=== PATIENT | female | born 1980 | race Two or more races ===

== ENCOUNTER 2018-11-19 20:48 | Observation (INO) | payer MEDICAID, OTHER ==
[2018-11-19] MEDS ORDERED: HYDROmorphONE/DILAUDID 1 MG/ML INJ ONE ×2 (21:03→21:57)
[2018-11-19] MEDS ORDERED: ONDANSETRON 4 MG/2 ML VIAL ONE ×2 (21:04→23:26)
[2018-11-19] MEDS ORDERED: NS 1,000 ML IV ONE (21:07)
[2018-11-19] MEDS ORDERED: ONDANSETRON 4 MG/2 ML VIAL IVP ONE (21:08)
[2018-11-19] MEDS ORDERED: HYDROmorphONE/DILAUDID 2 MG/ML INJ IVP ONE ×2 (21:08→22:01)
--- NOTE | 2018-11-19 21:10 | EDPHY ---
H & P Stated Complaint: lower abd pain Time Seen by Provider: 11/19/18 21:04 HPI/ROS: CHIEF COMPLAINT: Abdominal pain HISTORY OF PRESENT ILLNESS: Patient is a 38-year-old female who comes to the emergency department complaining of lower abdominal pain. The states that it began about 2 3 hr ago. She is nauseous but has not been vomiting. No diarrhea. No fever. She felt well prior to this. She denies history of abdominal surgery although she states that she did have a procedure so that she cannot have babies. No dysuria. No vaginal bleeding or discharge. Last menstrual period was 3 weeks ago. Severity: Severe Modifying factors: Worsened by palpation REVIEW OF SYSTEMS: Constitutional: denies: chills, fever, recent illness, recent injury EENTM: denies: blurred vision, double vision, nose congestion Respiratory: denies: cough, shortness of breath Cardiac: denies: chest pain, irregular heart rate, lightheadedness, palpitations Gastrointestinal/Abdominal: See HPI Genitourinary: denies: dysuria, frequency, hematuria, pain Musculoskeletal: denies: joint pain, muscle pain Skin: denies: lesions, rash, jaundice, bruising Neurological: denies: headache, numbness, paresthesia, tingling, dizziness, weakness Hematologic/Lymphatic: denies: blood clots, easy bleeding, easy bruising Immunologic/allergic: denies: HIV/AIDS, transplant 10 systems reviewed and negative except as noted EXAM: GENERAL: Moderate distress. HEAD: Atraumatic, normocephalic. EYES: Pupils equal round and reactive to light, extraocular movements intact, sclera anicteric, conjunctiva are normal. ENT: TMs normal, nares patent, oropharynx clear without exudates. Moist mucous membranes. NECK: Normal range of motion, supple without lymphadenopathy or JVD. LUNGS: Breath sounds clear to auscultation bilaterally and equal. No wheezes rales or rhonchi. HEART: Regular rate and rhythm without murmurs, rubs or gallops. ABDOMEN: Suprapubic and right lower quadrant tenderness, normoactive bowel sounds. No guarding, no rebound. No masses appreciated. BACK: No CVA tenderness, no spinal tenderness, step-offs or deformities EXTREMITIES: Normal range of motion, no pitting or edema. No clubbing or cyanosis. NEUROLOGICAL: Cranial nerves II through XII grossly intact. Normal speech, normal gait. 5/5 strength, normal movement in all extremities, normal sensation , normal reflexes PSYCH: Normal mood, normal affect. SKIN: Warm, dry, normal turgor, no visible rashes or lesions. Source: Patient Exam Limitations: Language barrier - Personal History LMP (Females 10-55): 8-14 Days Ago Current Tetanus/Diphtheria Vaccine: Yes Current Tetanus Diphtheria and Acellular Pertussis (TDAP): Yes - Medical/Surgical History Hx Asthma: No Hx Chronic Respiratory Disease: No Hx Diabetes: No Hx Cardiac Disease: No Hx Renal Disease: No Hx Cirrhosis: No Hx Alcoholism: No Hx HIV/AIDS: No Hx Splenectomy or Spleen Trauma: No Other PMH: denies - Family History Significant Family History: No pertinent family hx - Social History Smoking Status: Never smoked Alcohol Use: None Constitutional: Initial Vital Signs Temperature (C) 37.2 C 11/19/18 20:50 Heart Rate 78 11/19/18 20:50 Respiratory Rate 16 11/19/18 20:50 Blood Pressure 119/78 11/19/18 20:50 O2 Sat (%) 100 11/19/18 20:50 O2 Delivery Mode Room Air Allergies/Adverse Reactions: No Known Allergies Allergy (Unverified 02/20/12 18:50) Home Medications: Medication Instructions Recorded Multivitamins [Multivitamin (*)] 1 each PO DAILY 11/19/18 Medical Decision Making - Diagnostics Imaging Results: Imaging Impressions Abdomen CT 11/19/18 21:07 Impression: 1. Acute appendicitis with thickening up to 16 mm and an appendicolith. 2. No abscess or bowel obstruction. Findings and recommendations discussed with Emergency Department physician, ALVIN ZEPEDA at 21:52 hour, 11/19/2018. Final report concurs with initial preliminary interpretation. Imaging: Discussed imaging studies w/ machine helper Radiologist ED Course/Re-evaluation: 9:55 p.m. the patient has appendicitis on CT scan. This is consistent with her exam and lab work. I have paged surgery and will start antibiotics. Discussed this with the family through the furniture inspector and they understand and agree with plan. 10:15 p.m. discussed the case with Dr. Plummer who will come to evaluate. Differential Diagnosis: Partial list of the Differential diagnosis considered include but were not limited to; appendicitis, ovarian cyst, urinary tract infection and although unlikely based on the history and physical exam, I also considered kidney stone , ischemia, obstruction. I discussed these differential diagnoses and the plan with the patient as well as the usual and expected course. The patient understands that the diagnosis is provisional and that in medicine we are not always correct and that further workup is often warranted. Usual and customary warnings were given. All of the patient's questions were answered. The patient was instructed to return to the emergency department should the symptoms at all worsen or return, otherwise to followup with the physician as we discussed. - Data Points Laboratory Results: Laboratory Results 11/19/18 21:12 11/19/18 21:12 11/19/18 11/19/18 11/19/18 21:18 21:12 21:12 WBC RBC Hgb POC Hgb 12.2 gm/dL L gm/dL (12.6-16.3) Hct POC Hct 36 % L % (38-47) MCV MCH MCHC RDW Plt Count MPV Neut % (Auto) Lymph % (Auto) George % (Auto) Eos % (Auto) Baso % (Auto) Nucleat RBC Rel Count Absolute Neuts (auto) Absolute Lymphs (auto) Absolute Monos (auto) Absolute Eos (auto) Absolute Basos (auto) Absolute Nucleated RBC Immature Gran % Immature Gran # POC Sodium 140 mEq/L mEq/L (135-145) Sodium 135 mEq/L mEq/L (135-145) POC Potassium 3.8 mEq/L mEq/L (3.3-5.0) Potassium 4.2 mEq/L mEq/L (3.5-5.2) POC Chloride 103 mEq/L mEq/L (97-110) Chloride 101 mEq/L mEq/L (97-110) Carbon Dioxide 23 mEq/l mEq/l (22-31) POC Total CO2 23 mEq/L mEq/L (22-31) Anion Gap 11 mEq/L mEq/L (6-14) POC BUN 11 mg/dL mg/dL (7-23) BUN 13 mg/dL mg/dL (7-23) Creatinine 0.7 mg/dL mg/dL (0.6-1.0) POC Creatinine 0.7 mg/dL mg/dL (0.6-1.0) Estimated GFR > 60 Glucose 109 mg/dL H mg/dL (70-100) POC Glucose 114 mg/dL H mg/dL (70-100) Calcium 9.8 mg/dL mg/dL (8.5-10.4) Total Bilirubin 0.2 mg/dL mg/dL (0.1-1.4) Conjugated Bilirubin 0.2 mg/dL mg/dL (0.0-0.5) Unconjugated Bilirubin 0.0 mg/dL mg/dL (0.0-1.1) AST 24 IU/L IU/L (14-46) ALT 22 IU/L IU/L (9-52) Alkaline Phosphatase 121 IU/L IU/L (38-126) Total Protein 7.3 g/dL g/dL (6.3-8.2) Albumin 4.4 g/dL g/dL (3.5-5.0) Lipase 161 IU/L IU/L (23-300) Beta HCG, Qual NEGATIVE 11/19/18 21:12 WBC 15.14 10^3/uL H 10^3/uL (3.80-9.50) RBC 4.59 10^6/uL 10^6/uL (4.18-5.33) Hgb 10.7 g/dL L g/dL (12.6-16.3) POC Hgb Hct 34.8 % L % (38.0-47.0) POC Hct MCV 75.8 fL L fL (81.5-99.8) MCH 23.3 pg L pg (27.9-34.1) MCHC 30.7 g/dL L g/dL (32.4-36.7) RDW 17.8 % H % (11.5-15.2) Plt Count 322 10^3/uL 10^3/uL (150-400) MPV 9.6 fL fL (8.7-11.7) Neut % (Auto) 77.4 % H % (39.3-74.2) Lymph % (Auto) 14.7 % L % (15.0-45.0) George % (Auto) 5.3 % % (4.5-13.0) Eos % (Auto) 1.9 % % (0.6-7.6) Baso % (Auto) 0.3 % % (0.3-1.7) Nucleat RBC Rel Count 0.0 % % (0.0-0.2) Absolute Neuts (auto) 11.72 10^3/uL H 10^3/uL (1.70-6.50) Absolute Lymphs (auto) 2.22 10^3/uL 10^3/uL (1.00-3.00) Absolute Monos (auto) 0.80 10^3/uL 10^3/uL (0.30-0.80) Absolute Eos (auto) 0.29 10^3/uL 10^3/uL (0.03-0.40) Absolute Basos (auto) 0.05 10^3/uL 10^3/uL (0.02-0.10) Absolute Nucleated RBC 0.00 10^3/uL 10^3/uL (0-0.01) Immature Gran % 0.4 % % (0.0-1.1) Immature Gran # 0.06 10^3/uL 10^3/uL (0.00-0.10) POC Sodium Sodium POC Potassium Potassium POC Chloride Chloride Carbon Dioxide POC Total CO2 Anion Gap POC BUN BUN Creatinine POC Creatinine Estimated GFR Glucose POC Glucose Calcium Total Bilirubin Conjugated Bilirubin Unconjugated Bilirubin AST ALT Alkaline Phosphatase Total Protein Albumin Lipase Beta HCG, Qual Medications Given: Metronidazole/Sodium Chloride (Flagyl 500 Mg (Premix)) 100 mls @ 100 mls/hr IV EDNOW ONE PRN Reason: Protocol Stop: 11/19/18 22:53 Last Admin: 11/19/18 22:20 Dose: 100 mls Discontinued Medications Hydromorphone HCl (Dilaudid) 0.5 mg IVP EDNOW ONE Stop: 11/19/18 21:09 Last Admin: 11/19/18 21:11 Dose: 0.5 mg Hydromorphone HCl (Dilaudid) 0.5 mg IVP EDNOW ONE Stop: 11/19/18 22:02 Last Admin: 11/19/18 22:01 Dose: 0.5 mg Sodium Chloride (Ns) 1,000 mls @ 0 mls/hr IV EDNOW ONE; Wide Open PRN Reason: Protocol Stop: 11/19/18 21:08 Last Admin: 11/19/18 21:11 Dose: 1,000 mls Ceftriaxone Sodium/Dextrose (Rocephin 1 Gm (Premix)) 50 mls @ 100 mls/hr IV EDNOW ONE PRN Reason: Protocol Stop: 11/19/18 22:23 Last Admin: 11/19/18 21:58 Dose: 50 mls Ondansetron HCl (Zofran) 4 mg IVP EDNOW ONE Stop: 11/19/18 21:09 Last Admin: 11/19/18 21:12 Dose: 4 mg Point of Care Test Results: Chemistry 11/19/18 21:18 POC Sodium 140 mEq/L mEq/L (135-145) POC Potassium 3.8 mEq/L mEq/L (3.3-5.0) POC Chloride 103 mEq/L mEq/L (97-110) POC Total CO2 23 mEq/L mEq/L (22-31) POC BUN 11 mg/dL mg/dL (7-23) POC Creatinine 0.7 mg/dL mg/dL (0.6-1.0) POC Glucose 114 mg/dL H mg/dL (70-100) ISTAT H&H 11/19/18 21:18 POC Hgb 12.2 gm/dL L gm/dL (12.6-16.3) POC Hct 36 % L % (38-47) Departure - Departure Disposition: [facility] Inpatient Acute Clinical Impression: Appendicitis Qualifiers: Appendicitis type: acute appendicitis Acute appendicitis type: with localized peritonitis Appendicitis gangrene presence: without gangrene Appendicitis perforation presence: without perforation Appendicitis abscess presence: without abscess Qualified Code(s): K35.30 - Acute appendicitis with localized peritonitis, without perforation or gangrene Condition: Fair
[2018-11-19 21:25] LABS: PLATELET COUNT 322 10^3/uL (150-400)
[2018-11-19] MEDS ORDERED: IOPAMIDOL (ISOVUE-300) 100 ML BTL ONE (21:28)
[2018-11-19] MEDS ORDERED: BUPIVACAINE 0.5% 30 ML SDV ONE (22:28)
--- NOTE | 2018-11-19 23:04 | PDANEPAE ---
ANE History of Present Illness Appendicitis ANE Past Medical History - Cardiovascular History Hx Hypertension: No - Pulmonary History Hx Asthma/Reactive Airway Disease: No Hx Oxygen in Use at Home: No - Endocrine History Hx Diabetes: No ANE Review of Systems Review of Systems: ANE Patient History - Allergies Allergies/Adverse Reactions: No Known Allergies Allergy (Unverified 02/20/12 18:50) - Home Medications Home Medications: Multivitamins [Multivitamin (*)] 1 each PO DAILY 11/19/18 [Last Taken Unknown] - NPO status NPO Since - Liquids (Date): 11/19/18 NPO Since - Liquids (Time): 12:00 NPO Since - Solids (Date): 11/19/18 NPO Since - Solids (Time): 12:00 - Anes Hx Anes Hx: no prior problems - Smoking Hx Smoking Status: Never smoked - Alcohol Use Alcohol Use: None ANE Labs/Vital Signs - Labs Result Diagrams: 11/19/18 21:12 11/19/18 21:12 - Vital Signs Blood Pressure: 121/85 Heart Rate: 81 Respiratory Rate: 16 O2 Sat (%): 94 Height: 165.1 cm Weight: 68.039 kg ANE Physical Exam - Airway Neck exam: FROM Mallampati Score: Class 2 Mouth exam: normal dental/mouth exam - Pulmonary Pulmonary: no respiratory distress - Cardiovascular Cardiovascular: regular rate and rhythym - ASA Status ASA Status: II, E ANE Anesthesia Plan Anesthesia Plan: general endotracheal anesthesia
[2018-11-19] MEDS ORDERED: ROCURONIUM 50 MG/5 ML VIAL ONE (23:11)
[2018-11-19] MEDS ORDERED: LIDOCAINE 2% 5 ML SDV ONE (23:12)
[2018-11-19] MEDS ORDERED: GLYCOPYRROLATE 0.2 MG/1 ML VIAL ONE (23:12)
[2018-11-19] MEDS ORDERED: PROPOFOL 200 MG/20 ML VIAL ONE (23:13)
[2018-11-19] MEDS ORDERED: fentaNYL 100 MCG/2 ML INJ ONE (23:13)
[2018-11-19] MEDS ORDERED: DEXAMETHASONE 4 MG/ML VIAL ONE (23:26)
[2018-11-19] MEDS ORDERED: HYDROmorphONE/DILAUDID 1 MG/ML INJ IVP PRN (23:33)
[2018-11-19] MEDS ORDERED: ONDANSETRON 4 MG/2 ML VIAL IVP PRN (23:33)
[2018-11-19] MEDS ORDERED: fentaNYL 100 MCG/2 ML INJ IVP PRN (23:33)
[2018-11-19] MEDS ORDERED: NALOXONE HCL 0.4 MG/ML INJ IVP PRN (23:33)
[2018-11-19] MEDS ORDERED: PROMETHAZINE HCL 25 MG/ML INJ IVP PRN (23:33)
[2018-11-19] MEDS ORDERED: SUGAMMADEX SODIUM 200 MG/2 ML VIAL IVP ONE (23:42)
--- NOTE | 2018-11-19 23:59 | POSTOPPROG ---
Post Op Note Date of Operation: 11/19/18 Surgeon: Jean Carlos Plummer Anesthesiologist: MAMADOU Anesthesia: GET(General Endotracheal) Pre-op Diagnosis: ACUTE APPE Post-op Diagnosis: SAME Indication: PAIN Procedure: LAP APPE Findings: ACUTE APPE Inf/Abcess present in the surg proc area at time of surgery?: Yes Depth: Organ Space EBL: Minimal Complications: 0 Specimen(s): APPENDIX
--- NOTE | 2018-11-20 00:03 | PDGENHP ---
History & Physical Chief Complaint: RLQ PAIN History of Present Illness: 38 FEMALE WITH ACUTE RLQ PAIN FOR R HRS/ +CT FOR 16 MM APPENDIX/ WBC 12K/ SOME NAUSEA/ PAIN WORSE WITH MOVEMENT/ NO DIARHEA/ ADMIT FOR LAP APPE / RISKS AND OPTIONS FULLY DISCUSSED Pertinent Past, Social, Family History: PMH: TUBAL LIGATION/ PREGNANCIES. ROS -10 PT REVIEW. SOC HX - TOBACCO. MEDS NONE. ALL NONE. FAM HX NONCONTRIB Relevant Physical Exam: 38 FEMALE IN NO ACUTE DISTRESS, AFEBRILE. HEENT NONICTERIC, NO NODES, PERRLA. CHEST CLEAR. COR RR. ABD SOFT, + BS, TENDER RLQ WITH REBOUND AND GUARDING. EXTREM FULL ROM AND PULSES. NEURO SYMMETRIC AND PHYSIOLOGIC. PSYCH ALERT, ORIENTED, COOPERATIVE Cardiorespiratory Assessment: IMP ACUTE APPE. PLAN: LAP APPE/ RISKS AND OPTIONS FULLY DISCUSSED
--- NOTE | 2018-11-20 00:05 | POSTANESTH ---
Post Anesthetic Evaluation Cardiovascular Status: Similar to Pre-Op Cond Respiratory Status: Similar to Pre-op Cond. Level of Consciousness/Mental Status: Alert and Oriented Pain Control: Adequate, Prn Tx Ordered Nausea/Vomiting Control: Adequate, Prn Tx Ordered Complications Possibly Related to Anesthesia: None Noted
[2018-11-20] MEDS ORDERED: OXYCODONE/APAP 5/325 TAB PO PRN (00:07)
[2018-11-20] MEDS ORDERED: ONDANSETRON 4 MG/2 ML VIAL IVP PRN (00:07)
[2018-11-20] MEDS ORDERED: HYDROmorphONE/DILAUDID 1 MG/ML INJ IVP PRN (00:07)
[2018-11-20] MEDS ORDERED: KETOROLAC 15 MG/1 ML SDV ONE (00:08)
[2018-11-20] MEDS: KETOROLAC 15 MG/1 ML SDV IVP SCH ×2 (00:15→06:34)
[2018-11-20] MEDS ORDERED: D5W 1/2 NS W/ 20 KCl/L 1,000 ML IV SCH (00:15)
[2018-11-20 07:10] VITALS: BP 94/52
--- NOTE | 2018-11-20 08:34 | SOAPPROG ---
SOAP Progress Note Assessment/Plan: Assessment/Plan: 38 Y F s/p lap appy for nonperforated acute appendicitis. Doing well. Pain controlled. Wounds intact. ADAT. If does well with diet, may d/c to home today. S: feels like she could go home today. O: alert, nad ctab rrr abd soft, inc cdi, hypoactive bs 11/20/18 08:33 Objective: Vital Signs Temp Pulse Resp BP Pulse Ox 36.7 C 77 16 94/52 L 96 11/20/18 07:07 11/20/18 07:07 11/20/18 07:07 11/20/18 07:07 11/20/18 07:07 11/19/18 11/20/18 11/21/18 05:59 05:59 05:59 Intake Total 1450 Output Total 5 Balance 1445 ICD10 Worksheet Patient Problems: Problems Problem Status Onset Appendicitis Acute
== END 2018-11-20 10:39 | disposition home or self-care (01) ==
LOC: F3E 11-20 00:35
PROVIDERS: ADMIT Surgery; ATTEND Surgery
PROC: 0DTJ4ZZ Resection of Appendix, Percutaneous Endoscopic Approach (ICD-10-PCS; principal; 2018-11-19 23:00)
DX: K35.80 Unspecified acute appendicitis (principal)
CPT/HCPCS: 82435-PO; 82565-PO; 82947-PO; 84132-PO; 84295-PO; 84520-PO; 85014-ER; 96374; J0696; J1100; J1170; J1885; J2405; J2704; J3010; Q9967